=== PATIENT | male | born 1995 | race Caucasian/White ===

== ENCOUNTER 2018-08-12 14:34 | Inpatient (IN) | payer OTHER ==
[2018-08-12] MEDS ORDERED: Sodium Chloride 0.9% 1,000 ML IV SCH ×2 (15:00→16:30)
--- NOTE | 2018-08-12 15:01 | EDM.PDOC ---
ED HPI GENERAL MEDICAL PROBLEM - General Chief Complaint: Diabetic Complaint Stated Complaint: HIGH BLOOD SUGAR/CRAMPS Time Seen by Provider: 08/12/18 14:55 Source of Information: Reports: Patient History Limitations: Reports: No Limitations - History of Present Illness INITIAL COMMENTS - FREE TEXT/NARRATIVE: 23-year-old male presented to Dr. Sarmiento's clinic today because of feeling unwell for the last several weeks. He is appreciated increased polyuria and polydipsia much worse over the last 4 days. When he looks back he believes that he has lost between 10 and 13 pounds of weight in the last several weeks. Denies is polyuria and polydipsia. He went and body glucometer and identified that his blood sugar was in the 360 range. He has some diabetes on his father's side of the family with an aunt who has diabetes but both of them were type II diabetics. He denies cough sputum production. Denies fever or chills. Has some weakness. Appetite remains quite good. He denies any nausea or vomiting. Onset: Gradual (Over the last week or more.) Duration: Day(s):, Getting Worse Location: Reports: Generalized (Generalized weakness with a strong sense of polydipsia and polyuria.) Quality: Reports: Other Severity: Moderate Improves with: Reports: None Worsens with: Reports: None Context: Reports: Other (Robbie is occurrence of above symptoms). Denies: Activity, Exercise, Lifting, Sick Contact, Trauma Associated Symptoms: Reports: Malaise, Other. Denies: Confusion, Chest Pain, Cough, cough w sputum, Diaphoresis, Fever/Chills, Headaches, Loss of Appetite, Nausea/Vomiting, Rash, Seizure, Shortness of Breath, Syncope Treatments [employer]: Reports: Other (see below) (None.) - Related Data Allergies Allergy/AdvReac Type Severity Reaction Status Date / Time No Known Allergies Allergy Verified 08/12/18 14:45 Home Meds: Home Meds . [No Known Home Meds] 08/12/18 [History] Past Medical History Musculoskeletal History: Reports: Other (See Below) (Fractured left femur as a child age 3 treated by cast) Social & Family History - Living Situation & Occupation Living situation: Reports: Single Occupation: Employed ED ROS GENERAL - Review of Systems Review Of Systems: See Below Constitutional: Reports: Malaise, Weakness, Fatigue, Weight Loss (About 10-13 pounds over the last 2-3 weeks as a weighed about 145 pounds currently 133). Denies: Fever, Chills HEENT: Reports: Other (Dry tongue and mouth all the time) Respiratory: Reports: No Symptoms Cardiovascular: Reports: Palpitations Endocrine: Reports: Fatigue (Occasional palpitations), High Glucose (Scattered with glucometers today.) GI/Abdominal: Reports: No Symptoms : Reports: Frequency Musculoskeletal: Reports: No Symptoms Skin: Reports: Dryness (This of his hands particularly) Neurological: Reports: No Symptoms Psychiatric: Reports: No Symptoms Hematologic/Lymphatic: Reports: No Symptoms ED EXAM GENERAL NO PERIP PULSE - Physical Exam Exam: See Below Exam Limited By: No Limitations General Appearance: Alert, WD/WN, No Apparent Distress, Other (Vital signs show pulse of 77 respiratory rate of 20 blood pressure 131/81.) Eye Exam: Bilateral Eye: Normal Inspection Ears: Normal TMs Throat/Mouth: Normal Inspection, Normal Oropharynx, Other Head: No: Atraumatic (Posterior or paroxysmal mildly erythematous. No exudate), Normocephalic Neck: Normal Inspection, Supple, Non-Tender, Full Range of Motion. No: Lymphadenopathy (L), Lymphadenopathy (R) Respiratory/Chest: No Respiratory Distress, Lungs Clear, Normal Breath Sounds, No Accessory Muscle Use, Chest Non-Tender, Respiratory Distress (Mild tachypnea 20/m) Cardiovascular: Normal Peripheral Pulses, Regular Rate, Rhythm, No Edema, No Gallop, No Murmur, No Rub GI/Abdominal: Normal Bowel Sounds, Soft, Non-Tender (Male) Exam: No Hernia Back Exam: Normal Inspection, Full Range of Motion. No: CVA Tenderness (L), CVA Tenderness (R) Extremities: Normal Inspection, Normal Range of Motion, Non-Tender, No Pedal Edema Neurological: Alert, Oriented, CN II-XII Intact, Normal Cognition Psychiatric: Normal Affect, Normal Mood Skin Exam: Warm, Dry, Intact, Normal Color, No Rash EKG INTERPRETATION EKG Date: 08/12/18 Time: 15:11 Rhythm: NSR Rate (Beats/Min): 81 [place]: RAD-Right [place] Deviation P-Wave: Enlarged (Consider left atrial hypertrophy) QRS: Other (Borderline criteria for left ventricular hypertrophy pattern normal for age.) ST-T: Normal QT: Normal EKG Interpretation Comments: Borderline ECG Course - Vital Signs Last Recorded V/S: Last Vital Signs Temp 36.6 C 08/12/18 14:45 Pulse 77 08/12/18 14:45 Resp 20 08/12/18 14:45 BP 131/81 08/12/18 14:45 Pulse Ox 99 08/12/18 14:45 - Orders/Labs/Meds Orders: Active Orders 24 hr Category Date Time Status Blood Glucose Check, Bedside [] ONETIME Care 08/12/18 14:57 Active EKG Documentation Completion [RC] STAT Care 08/12/18 14:56 Active Insulin Regular, Human [HumuLIN R] 100 unit Med 08/12/18 15:15 Active Sodium Chloride 0.9% [Normal Saline] 99 ml IV TITRATE Sodium Chloride 0.9% [Normal Saline] 1,000 ml Med 08/12/18 15:00 Active IV ASDIRECTED Sodium Chloride 0.9% [Normal Saline] 1,000 ml Med 08/12/18 16:30 Active IV ASDIRECTED Medication Orders Sodium Chloride (Normal Saline) 1,000 mls @ 999 mls/hr IV ASDIRECTED CLYDE Last Admin: 08/12/18 15:19 Dose: 999 mls/hr Insulin Human Regular 100 unit (/ Sodium Chloride) 100 mls @ 1 mls/hr IV TITRATE CLYDE Last Admin: 08/12/18 15:54 Dose: 2 unit/hr, 2 mls/hr Sodium Chloride (Normal Saline) 1,000 mls @ 500 mls/hr IV ASDIRECTED CLYDE Potassium Chloride/Dextrose/Sod Cl (D5 Ns With 20 Meq Kcl) 1,000 mls @ 250 mls/ hr IV ASDIRECTED [facility] Labs: Laboratory Tests 08/12/18 08/12/18 08/12/18 Range/Units 14:44 15:10 15:10 WBC 6.60 (4.23-9.07) K/mm3 RBC 5.67 (4.63-6.08) M/mm3 Hgb 16.2 (13.7-17.5) gm/L Hct 45.3 (40.1-51.0) % MCV 79.9 (79.0-92.2) fl MCH 28.6 (25.7-32.2) pg MCHC 35.8 H (32.2-35.5) g/dl RDW Std Deviation 34.6 L (35.1-43.9) fL Plt Count 275 (163-337) K/mm3 MPV 11.0 (9.4-12.3) fl Neutrophils % (Manual) 62 H (40-60) % Band Neutrophils % 0 (0-10) % Lymphocytes % (Manual) 35 (20-40) % Atypical Lymphs % 0 % Monocytes % (Manual) 2 (2-10) % Eosinophils % (Manual) 1 (0.8-7.0) % Basophils % (Manual) 0 L (0.2-1.2) Platelet Estimate Adequate RBC Morph Comment Normal Sodium 137 (136-145) mEq/L Potassium 3.7 (3.5-5.1) mEq/L Chloride 98 (98-107) mEq/L Carbon Dioxide 28 (21-32) mEq/L Anion Gap 14.7 (5-15) BUN 15 (7-18) mg/dL Creatinine 1.0 (0.7-1.3) mg/dL Est Cr Clr Drug Dosing 98.53 mL/min Estimated GFR (MDRD) > 60 (>60) mL/min BUN/Creatinine Ratio 15.0 (14-18) Glucose 333 H (74-106) mg/dL POC Glucose 337 H (70-105) mg/dL Hemoglobin A1c (4.50-6.20) % Serum Osmolality 301 H (280-300) mosm/kg Lactic Acid (0.4-2.0) mmol/L Calcium 9.1 (8.5-10.1) mg/dL Magnesium 1.9 (1.8-2.4) mg/dl Total Bilirubin 2.1 H (0.2-1.0) mg/dL AST 26 (15-37) U/L ALT 80 H (16-63) U/L Alkaline Phosphatase 114 (46-116) U/L C-Reactive Protein < 0.2 (<1.0) mg/dL Total Protein 7.5 (6.4-8.2) g/dl Albumin 4.5 (3.4-5.0) g/dl Globulin 3.0 gm/dL Albumin/Globulin Ratio 1.5 (1-2) Ketones (0.0-0.3) mM 03/12/19 03/12/19 03/12/19 Range/Units 15:10 15:10 15:35 WBC (4.23-9.07) K/mm3 RBC (4.63-6.08) M/mm3 Hgb (13.7-17.5) gm/L Hct (40.1-51.0) % MCV (79.0-92.2) fl MCH (25.7-32.2) pg MCHC (32.2-35.5) g/dl RDW Std Deviation (35.1-43.9) fL Plt Count (163-337) K/mm3 MPV (9.4-12.3) fl Neutrophils % (Manual) (40-60) % Band Neutrophils % (0-10) % Lymphocytes % (Manual) (20-40) % Atypical Lymphs % % Monocytes % (Manual) (2-10) % Eosinophils % (Manual) (0.8-7.0) % Basophils % (Manual) (0.2-1.2) Platelet Estimate RBC Morph Comment Sodium (136-145) mEq/L Potassium (3.5-5.1) mEq/L Chloride (98-107) mEq/L Carbon Dioxide (21-32) mEq/L Anion Gap (5-15) BUN (7-18) mg/dL Creatinine (0.7-1.3) mg/dL Est Cr Clr Drug Dosing mL/min Estimated GFR (MDRD) (>60) mL/min BUN/Creatinine Ratio (14-18) Glucose (74-106) mg/dL POC Glucose (70-105) mg/dL Hemoglobin A1c 9.70 H (4.50-6.20) % Serum Osmolality (280-300) mosm/kg Lactic Acid 1.2 (0.4-2.0) mmol/L Calcium (8.5-10.1) mg/dL Magnesium (1.8-2.4) mg/dl Total Bilirubin (0.2-1.0) mg/dL AST (15-37) U/L ALT (16-63) U/L Alkaline Phosphatase (46-116) U/L C-Reactive Protein (<1.0) mg/dL Total Protein (6.4-8.2) g/dl Albumin (3.4-5.0) g/dl Globulin gm/dL Albumin/Globulin Ratio (1-2) Ketones 1.82 (0.0-0.3) mM Meds: Medications Generic Name Dose Route Start Last Admin Trade Name Freq PRN Reason Stop Dose Admin Sodium Chloride 1,000 mls @ 999 mls/hr 08/12/18 15:00 08/12/18 15:19 Normal Saline IV 999 mls/hr ASDIRECTED CLYDE Administration Insulin Human Regular 100 unit 100 mls @ 1 mls/hr 08/12/18 15:15 08/12/18 15: 54 / Sodium Chloride IV 2 unit/hr TITRATE CLYDE 2 mls/hr Administration 1 UNIT/HR Sodium Chloride 1,000 mls @ 500 mls/hr 08/12/18 16:30 Normal Saline IV ASDIRECTED CLYDE Potassium Chloride/Dextrose/Sod Cl 1,000 mls @ 250 mls/hr 08/12/18 17:30 D5 Ns With 20 Meq Kcl IV ASDIRECTED CLYDE Discontinued Medications Generic Name Dose Route Start Last Admin Trade Name Freq PRN Reason Stop Dose Admin Sodium Chloride 1,000 mls @ 999 mls/hr 08/12/18 16:19 08/12/18 16:23 Normal Saline IV 08/12/18 17:19 999 mls/hr ONETIME ONE Administration - Radiology Interpretation Free Text/Narrative:: 23-year-old male presents to the ED with polyuria polydipsia and a 12 pound weight loss over the last couple of weeks. As the last 4 days. Sugar is 330 fasting. Therefore appears that he is a new onset type I diabetic. No ketones on his breath. Plan IV normal saline at open. Labs to be done to include glycosylated protein, serum ketones, lactic acid levels. He will be started on insulin drip at 2 units an hour. ECG and chest x-ray to be done as well. - Re-Assessments/Exams Free Text/Narrative Re-Assessment/Exam: 08/12/18 15:21 chest x-ray is reveals hyperinflated lung fragoso normal cardiac silhouette lung fragoso are clear with no signs of infection. 08/12/18 16:26 Blood blood cell count is 6.60 with 62% neutrophils and no band cells reported. Hemoglobin is 16.2 with hematocrit of 45.3. MCV is slightly low at 79.9. 275,000. Sodium 137 potassium of 3.7. Chloride 98 with a bicarbonate of 28. And a gap is 14.7. BUN is 15 with a running of 1.0. GFR remains greater than 60. Glucose is 333. Bedside was 337. Serum osmolality is 301. Lactic acid is 1.2. Calcium is 9.1. Magnesium is 1.9. Total bilirubin is mildly elevated at 2.1 AST is 26 with an ALT of 80 and and alk phosphatase of 114. 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 C-reactive protein is less than 0.2. Total protein is 7.5. Serum ketones are mildly elevated at 1.82. 08/12/18 17:26 glycosylated protein is 9.7. Sugar is down to 195. Insulin drip reduced to 1 unit an hour. IV change to IV D5 S with 20 mg of KCl to run at 250 mils an hour patient is to be admitted to the intensive care unit under the care of Dr. Scott --ospitalist Departure - Departure Time of Disposition: 17:28 Disposition: Admitted As Inpatient 64 Condition: Fair Clinical Impression: New onset type 1 diabetes mellitus, uncontrolled - Discharge Information *PRESCRIPTION DRUG MONITORING PROGRAM REVIEWED*: Not Applicable *COPY OF PRESCRIPTION DRUG MONITORING REPORT IN PATIENT BRIANA: Not Applicable - My Orders Last 24 Hours: My Active Orders 08/12/18 14:56 EKG Documentation Completion [RC] STAT 08/12/18 14:57 Blood Glucose Check, Bedside [RC] ONETIME 08/12/18 15:00 Sodium Chloride 0.9% [Normal Saline] 1,000 ml IV ASDIRECTED 08/12/18 15:15 Insulin Regular, Human [HumuLIN R] 100 unit Sodium Chloride 0.9% [Normal Saline] 99 ml IV TITRATE 08/12/18 16:30 Sodium Chloride 0.9% [Normal Saline] 1,000 ml IV ASDIRECTED - Assessment/Plan Last 24 Hours: My Active Orders 08/12/18 14:56 EKG Documentation Completion [RC] STAT 08/12/18 14:57 Blood Glucose Check, Bedside [RC] ONETIME 08/12/18 15:00 Sodium Chloride 0.9% [Normal Saline] 1,000 ml IV ASDIRECTED 08/12/18 15:15 Insulin Regular, Human [HumuLIN R] 100 unit Sodium Chloride 0.9% [Normal Saline] 99 ml IV TITRATE 08/12/18 16:30 Sodium Chloride 0.9% [Normal Saline] 1,000 ml IV ASDIRECTED
--- NOTE | 2018-08-12 15:31 | CR ---
Chest: Portable view of the chest was obtained. Comparison: No prior chest x-ray. Heart size and mediastinum are within normal limits. Lungs are clear with no acute parenchymal change. Bony structures are grossly intact. Impression: 1. Nothing acute is seen on portable chest x-ray. Diagnostic code #1
[2018-08-12] MEDS ORDERED: Sodium Chloride 0.9% 1,000 ML IV ONE (16:19)
[2018-08-12 16:24] LABS: HEMOGLOBIN A1C 9.7 % (4.50-6.20)
[2018-08-12] MEDS ORDERED: Dextrose 5%-0.9% NaCl with KCl 1,000 ML IV SCH (17:30)
[2018-08-12] MEDS ORDERED: hydrALAZINE 20 MG/ML SDV IVPUSH PRN (17:48)
[2018-08-12] MEDS ORDERED: Nicotine 21 MG/24 Hr Patch TRDERM PRN (17:48)
[2018-08-12] MEDS ORDERED: Metoprolol Tartrate 5 MG/5 ML SDV IVPUSH PRN (17:48)
[2018-08-12] MEDS ORDERED: LORazepam 2 MG/ML SDV IVPUSH PRN (17:48)
[2018-08-12] MEDS ORDERED: Polyethylene Glycol 3350 Powder 17 GM Packet PO PRN (17:49)
[2018-08-12] MEDS ORDERED: Temazepam 7.5 MG Cap PO PRN (17:49)
[2018-08-12] MEDS ORDERED: Acetaminophen 325 MG Tab PO PRN (17:49)
[2018-08-12] MEDS ORDERED: Albuterol/Ipratropium 3.0-0.5 MG/3 ML Neb Soln NEB PRN (17:49)
[2018-08-12] MEDS ORDERED: Promethazine 6.25 MG in Sodium Chloride 0.9% 50 ML IV PRN (17:49)
[2018-08-12] MEDS ORDERED: Docusate Sodium 100 MG Cap PO PRN (17:49)
[2018-08-12] MEDS ORDERED: Acetaminophen/HYDROcodone 325-5 MG Tab PO PRN (17:49)
[2018-08-12] MEDS ORDERED: Bisacodyl 5 MG Tab PO PRN (17:49)
[2018-08-12] MEDS ORDERED: Ondansetron 4 MG/2 ML SDV IV PRN (17:49)
[2018-08-12] MEDS ORDERED: Magnesium Oxide 400 MG Tab PO ONE (18:15)
[2018-08-12] MEDS: Potassium Chloride 20 MEQ Tab.ER PO SCH ×2 (19:03→21:14)
--- NOTE | 2018-08-12 20:44 | PCM.HP ---
H&P History of Present Illness - General Date of Service: 08/12/18 Admit Problem/Dx: Admission Diagnosis/Problem Admission Diagnosis/Problem Diabetes mellitus Source of Information: Patient, Family, Provider, RN Notes Reviewed History Limitations: Reports: No Limitations - History of Present Illness Initial Comments - Free Text/Narative: This is a 23 yo healthy young white male who comes in feeling unwell in the past several weeks after being seen at the clinic for complaints of primarily polydipsia and polyuria over the past 4 days. His chief complaints were associated with malaise along with generalized weakness and was diagnosed with new onset of diabetes. He was referred to ED from the clinic for further evaluation and was told he has Type 1 Diabetes. His initial work up in ED shows a WBC significant for MCHC of 35.8, RDW of 34.6 , and Neutrophils of 62%. His chemistry is significant for BS of 333, A1C of 9.7 , Serum Osm of 301, Total Bilirubin of 2.1, and ALT of 80. His UA is negative for UTI but 2+ pos for ketones and glucose. His serum ketones level is 1.82. Patient is being admitted treatment of for new onset of diabetes likely FREDRICK. - Related Data Allergies/Adverse Reactions: Allergies Allergy/AdvReac Type Severity Reaction Status Date / Time No Known Allergies Allergy Verified 08/12/18 19:14 Home Medications: Home Meds Cholecalciferol (Vitamin D3) [Vitamin D3] 5,000 unit PO DAILY #30 tablet [Rx] Insulin Detemir [Levemir Flextouch] 15 unit SUBCUT BID #1 ml 08/13/18 [Rx] Insulin Lispro [HumaLOG] See Protocol SQ ACBED PRN #1 unit 08/13/18 [Rx] Lisinopril 10 mg PO DAILY #30 tablet 08/13/18 [Rx] Past Medical History Musculoskeletal History: Reports: Other (See Below) Other Musculoskeletal History: fracture of femur Neurological History: Reports: None Hematologic History: Reports: None - Past Surgical History HEENT Surgical History: Reports: Oral Surgery, Tonsillectomy GI Surgical History: Reports: Appendectomy Social & Family History - Family History Endocrine/Metabolic: Reports: None, Other (See Below) Other Endocrine/Metabolic Family History: Diabetes unknown which type - Tobacco Use Smoking Status *Q: Never Smoker Used Tobacco, but Quit: Yes Month/Year Tobacco Last Used: 13 - Caffeine Use Caffeine Use: Reports: Coffee - Recreational Drug Use Recreational Drug Use: No - Living Situation & Occupation Living situation: Reports: Single Occupation: Employed H&P Review of Systems - Review of Systems: Review Of Systems: See Below General: Reports: Weakness, Weight Loss, Other (malaise ). Denies: Fever, Chills, Malaise, Fatigue HEENT: Reports: Other (Polydipsia and Polyuria) Pulmonary: Denies: Shortness of Breath Cardiovascular: Denies: Chest Pain, Dyspnea on Exertion, Lightheadedness Gastrointestinal: Reports: Flatus. Denies: Abdominal Pain, Bloody Stool, Constipation, Diarrhea, Decreased Appetite, Difficulty Swallowing, Hematemesis, Nausea, Vomiting Genitourinary: Reports: Frequency Musculoskeletal: Denies: Neck Pain, Arm Pain, Back Pain, Joint Swelling, Muscle Stiffness Skin: Denies: Cyanosis, Jaundice, Mottled, Pallor, Diaphoresis, Bruising, Pruritis, Rash, Erythema, Wound, Lesions Psychiatric: Denies: Depression, Anxiety, Agitation, Hallucinations, Suicidal Ideation Neurological: Denies: Confusion, Dizziness, Headache, Numbness, Paresthesia, Seizure, Syncope, Tingling, Tremors, Trouble Speaking, Difficulty Walking, Weakness, Change in Speech, Gait Disturbance Hematologic/Lymphatic: Reports: No Symptoms Immunologic: Reports: No Symptoms Exam - Exam Exam: See Below - Vital Signs Vital Signs: Last Vital Signs Temp 37.1 C 08/12/18 18:15 Pulse 83 08/12/18 18:15 Resp 14 08/12/18 18:15 BP 117/73 08/12/18 18:15 Pulse Ox 100 08/12/18 18:15 Weight: 63.503 kg - Exam General: Alert, Oriented, Cooperative, Mild Distress, Other (healthy looking young man) HEENT: Conjunctiva Clear, EACs Clear, EOMI, Hearing Intact, Mucosa Moist & [place] , Nares Patent, Normal Nasal Septum, Posterior Pharynx Clear, Pupils Equal, Pupils Reactive, TMs Clear Neck: Supple, Trachea Midline, +2 Carotid Pulse wo Bruit, Full Range of Motion. No: Lymphadenopathy, JVD, Thyromegaly Lungs: Clear to Auscultation, Normal Respiratory Effort Cardiovascular: Regular Rate, Regular Rhythm GI/Abdominal Exam: Normal Bowel Sounds, Soft, Non-Tender, No Organomegaly, No Distention, No Abnormal Bruit, No Mass (Male) Exam: Deferred Rectal (Males) Exam: Deferred Back Exam: Normal Inspection, Full Range of Motion Extremities: Normal Inspection, Normal Range of Motion, Non-Tender, No Pedal Edema, Normal Capillary Refill Peripheral Pulses: 3+: Posterior Tibial (L), Posterior Tibial (R), Dorsalis Pedis (L), Dorsalis Pedis (R) Skin: Warm, Dry, Intact Neuro Extensive - Mental Status: Oriented x3, Normal Cognition, Memory Intact Neuro Extensive - Motor, Sensory, Reflexes: CN II-XII Intact, Normal Gait Psychiatric: Alert, Normal Affect, Normal Mood - Patient Data Lab Results Last 24 hrs: Laboratory Results - last 24 hr 08/12/18 08/12/18 08/12/18 Range/Units 14:44 15:10 15:10 WBC 6.60 (4.23-9.07) K/mm3 RBC 5.67 (4.63-6.08) M/mm3 Hgb 16.2 (13.7-17.5) gm/L Hct 45.3 (40.1-51.0) % MCV 79.9 (79.0-92.2) fl MCH 28.6 (25.7-32.2) pg MCHC 35.8 H (32.2-35.5) g/dl RDW Std Deviation 34.6 L (35.1-43.9) fL Plt Count 275 (163-337) K/mm3 MPV 11.0 (9.4-12.3) fl Neutrophils % (Manual) 62 H (40-60) % Band Neutrophils % 0 (0-10) % Lymphocytes % (Manual) 35 (20-40) % Atypical Lymphs % 0 % Monocytes % (Manual) 2 (2-10) % Eosinophils % (Manual) 1 (0.8-7.0) % Basophils % (Manual) 0 L (0.2-1.2) Platelet Estimate Adequate RBC Morph Comment Normal Sodium 137 (136-145) mEq/L Potassium 3.7 (3.5-5.1) mEq/L Chloride 98 (98-107) mEq/L Carbon Dioxide 28 (21-32) mEq/L Anion Gap 14.7 (5-15) BUN 15 (7-18) mg/dL Creatinine 1.0 (0.7-1.3) mg/dL Est Cr Clr Drug Dosing 98.53 mL/min Estimated GFR (MDRD) > 60 (>60) mL/min BUN/Creatinine Ratio 15.0 (14-18) Glucose 333 H (74-106) mg/dL POC Glucose 337 H (70-105) mg/dL Hemoglobin A1c (4.50-6.20) % Serum Osmolality 301 H (280-300) mosm/kg Lactic Acid (0.4-2.0) mmol/L Calcium 9.1 (8.5-10.1) mg/dL Magnesium 1.9 (1.8-2.4) mg/dl Total Bilirubin 2.1 H (0.2-1.0) mg/dL AST 26 (15-37) U/L ALT 80 H (16-63) U/L Alkaline Phosphatase 114 (46-116) U/L C-Reactive Protein < 0.2 (<1.0) mg/dL Total Protein 7.5 (6.4-8.2) g/dl Albumin 4.5 (3.4-5.0) g/dl Globulin 3.0 gm/dL Albumin/Globulin Ratio 1.5 (1-2) Free T4 (0.76-1.46) ng/dL TSH 3rd Generation (0.358-3.74) uIU/mL Ketones (0.0-0.3) mM 08/12/18 08/12/18 08/12/18 Range/Units 15:10 15:10 15:10 WBC (4.23-9.07) K/mm3 RBC (4.63-6.08) M/mm3 Hgb (13.7-17.5) gm/L Hct (40.1-51.0) % MCV (79.0-92.2) fl MCH (25.7-32.2) pg MCHC (32.2-35.5) g/dl RDW Std Deviation (35.1-43.9) fL Plt Count (163-337) K/mm3 MPV (9.4-12.3) fl Neutrophils % (Manual) (40-60) % Band Neutrophils % (0-10) % Lymphocytes % (Manual) (20-40) % Atypical Lymphs % % Monocytes % (Manual) (2-10) % Eosinophils % (Manual) (0.8-7.0) % Basophils % (Manual) (0.2-1.2) Platelet Estimate RBC Morph Comment Sodium (136-145) mEq/L Potassium (3.5-5.1) mEq/L Chloride (98-107) mEq/L Carbon Dioxide (21-32) mEq/L Anion Gap (5-15) BUN (7-18) mg/dL Creatinine (0.7-1.3) mg/dL Est Cr Clr Drug Dosing mL/min Estimated GFR (MDRD) (>60) mL/min BUN/Creatinine Ratio (14-18) Glucose (74-106) mg/dL POC Glucose (70-105) mg/dL Hemoglobin A1c 9.70 H (4.50-6.20) % Serum Osmolality (280-300) mosm/kg Lactic Acid (0.4-2.0) mmol/L Calcium (8.5-10.1) mg/dL Magnesium (1.8-2.4) mg/dl Total Bilirubin (0.2-1.0) mg/dL AST (15-37) U/L ALT (16-63) U/L Alkaline Phosphatase (46-116) U/L C-Reactive Protein (<1.0) mg/dL Total Protein (6.4-8.2) g/dl Albumin (3.4-5.0) g/dl Globulin gm/dL Albumin/Globulin Ratio (1-2) Free T4 (0.76-1.46) ng/dL TSH 3rd Generation 1.595 (0.358-3.74) uIU/mL Ketones 1.82 (0.0-0.3) mM 08/12/18 08/12/18 08/12/18 Range/Units 15:10 15:35 17:10 WBC (4.23-9.07) K/mm3 RBC (4.63-6.08) M/mm3 Hgb (13.7-17.5) gm/L Hct (40.1-51.0) % MCV (79.0-92.2) fl MCH (25.7-32.2) pg MCHC (32.2-35.5) g/dl RDW Std Deviation (35.1-43.9) fL Plt Count (163-337) K/mm3 MPV (9.4-12.3) fl Neutrophils % (Manual) (40-60) % Band Neutrophils % (0-10) % Lymphocytes % (Manual) (20-40) % Atypical Lymphs % % Monocytes % (Manual) (2-10) % Eosinophils % (Manual) (0.8-7.0) % Basophils % (Manual) (0.2-1.2) Platelet Estimate RBC Morph Comment Sodium (136-145) mEq/L Potassium (3.5-5.1) mEq/L Chloride (98-107) mEq/L Carbon Dioxide (21-32) mEq/L Anion Gap (5-15) BUN (7-18) mg/dL Creatinine (0.7-1.3) mg/dL Est Cr Clr Drug Dosing mL/min Estimated GFR (MDRD) (>60) mL/min BUN/Creatinine Ratio (14-18) Glucose (74-106) mg/dL POC Glucose 195 H (70-105) mg/dL Hemoglobin A1c (4.50-6.20) % Serum Osmolality (280-300) mosm/kg Lactic Acid 1.2 (0.4-2.0) mmol/L Calcium (8.5-10.1) mg/dL Magnesium (1.8-2.4) mg/dl Total Bilirubin (0.2-1.0) mg/dL AST (15-37) U/L ALT (16-63) U/L Alkaline Phosphatase (46-116) U/L C-Reactive Protein (<1.0) mg/dL Total Protein (6.4-8.2) g/dl Albumin (3.4-5.0) g/dl Globulin gm/dL Albumin/Globulin Ratio (1-2) Free T4 0.92 (0.76-1.46) ng/dL TSH 3rd Generation (0.358-3.74) uIU/mL Ketones (0.0-0.3) mM 08/12/18 Range/Units 19:06 WBC (4.23-9.07) K/mm3 RBC (4.63-6.08) M/mm3 Hgb (13.7-17.5) gm/L Hct (40.1-51.0) % MCV (79.0-92.2) fl MCH (25.7-32.2) pg MCHC (32.2-35.5) g/dl RDW Std Deviation (35.1-43.9) fL Plt Count (163-337) K/mm3 MPV (9.4-12.3) fl Neutrophils % (Manual) (40-60) % Band Neutrophils % (0-10) % Lymphocytes % (Manual) (20-40) % Atypical Lymphs % % Monocytes % (Manual) (2-10) % Eosinophils % (Manual) (0.8-7.0) % Basophils % (Manual) (0.2-1.2) Platelet Estimate RBC Morph Comment Sodium (136-145) mEq/L Potassium (3.5-5.1) mEq/L Chloride (98-107) mEq/L Carbon Dioxide (21-32) mEq/L Anion Gap (5-15) BUN (7-18) mg/dL Creatinine (0.7-1.3) mg/dL Est Cr Clr Drug Dosing mL/min Estimated GFR (MDRD) (>60) mL/min BUN/Creatinine Ratio (14-18) Glucose (74-106) mg/dL POC Glucose 194 H (70-105) mg/dL Hemoglobin A1c (4.50-6.20) % Serum Osmolality (280-300) mosm/kg Lactic Acid (0.4-2.0) mmol/L Calcium (8.5-10.1) mg/dL Magnesium (1.8-2.4) mg/dl Total Bilirubin (0.2-1.0) mg/dL AST (15-37) U/L ALT (16-63) U/L Alkaline Phosphatase (46-116) U/L C-Reactive Protein (<1.0) mg/dL Total Protein (6.4-8.2) g/dl Albumin (3.4-5.0) g/dl Globulin gm/dL Albumin/Globulin Ratio (1-2) Free T4 (0.76-1.46) ng/dL TSH 3rd Generation (0.358-3.74) uIU/mL Ketones (0.0-0.3) mM Result Diagrams: 08/13/18 06:05 08/13/18 06:05 Problem List Initiated/Reviewed/Updated: Yes Orders Last 24hrs: Active Orders 24 hr Category Date Time Status Admission Status [Patient Status] [ADT] Routine ADT 08/12/18 16:59 Active Antiembolic Devices [RC] DAILY Care 08/12/18 17:51 Active Blood Glucose Check, Bedside [RC] QIDACANDBED Care 08/12/18 17:52 Active Height and Weight [RC] DAILY Care 08/12/18 17:49 Active Intake and Output [RC] QSHIFT Care 08/12/18 17:49 Active Oxygen Therapy [RC] PRN Care 08/12/18 17:49 Active RT Aerosol Therapy [RC] ASDIRECTED Care 08/12/18 17:51 Active Up ad Kimberli [RC] ASDIRECTED Care 08/12/18 17:49 Active VTE/DVT Education [RC] PER UNIT ROUTINE Care 08/12/18 17:49 Active Vital Signs [RC] Q4H Care 08/12/18 17:49 Active Consult to Case Management/Card Puncher [CONS] Cons 08/12/18 17:49 Active Routine Consult to Diabetic Nurse Specialist [CONS] Routine Cons 08/12/18 17:49 Active Consult to Sales Promotion Manager [CONS] Routine Cons 08/12/18 17:49 Active Consistent Carbohydrate Diet [DIET] Diet 08/12/18 Dinner Active BASIC METABOLIC PANEL,BMP [CHEM] AM Lab 08/13/18 05:11 Ordered C-PEPTIDE, SERUM [REF] Stat Lab 08/12/18 18:18 Received CBC WITH AUTO DIFF [HEME] AM Lab 08/13/18 05:11 Ordered INSULIN ANTIBODIES [REF] Stat Lab 08/12/18 18:18 Received INSULIN [REF] Stat Lab 08/12/18 18:18 Received LIPID PANEL [CHEM] AM Lab 08/13/18 05:11 Ordered MAGNESIUM [CHEM] AM Lab 08/13/18 05:11 Ordered MICROALBUMIN/CREAT RATIO,URINE [URCHEM] Routine Lab 08/12/18 17:52 Ordered MISC TEST Stat Lab 08/12/18 18:18 Received VITAMIN D,25-HYDROXY [CHEM] AM Lab 08/13/18 05:11 Ordered Acetaminophen [Tylenol] Med 08/12/18 17:49 Active 650 mg PO Q4H PRN Acetaminophen/HYDROcodone [[place] 325-5 MG] Med 08/12/18 17:49 Active 1 tab PO Q4H PRN Albuterol/Ipratropium [DuoNeb 3.0-0.5 MG/3 ML] Med 08/12/18 17:49 Active 3 ml NEB Q4H PRN Alogliptin Benzoate [Alogliptin] Med 08/13/18 09:00 Active 25 mg PO DAILY Bisacodyl [Dulcolax] Med 08/12/18 17:49 Active 5 mg PO DAILY PRN Dextrose 5%-0.9% NaCl with KCl [D5 NS with 20 mEq KCl] Med 08/12/18 17:30 Active 1,000 ml IV ASDIRECTED Docusate Sodium [Colace] Med 08/12/18 17:49 Active 100 mg PO BID PRN Docusate Sodium/Sennosides [Senna Plus] Med 08/12/18 17:49 Active 1 tab PO BID PRN Insulin Regular, Human [HumuLIN R] 100 unit Med 08/12/18 15:15 Active Sodium Chloride 0.9% [Normal Saline] 99 ml IV TITRATE LORazepam [Ativan] Med 08/12/18 17:48 Active 2 mg IVPUSH Q4H PRN Metoprolol Tartrate [Lopressor] Med 08/12/18 17:48 Active 5 mg IVPUSH Q4H PRN Nicotine [Habitrol] Med 08/12/18 17:48 Active 21 mg TRDERM DAILY PRN Ondansetron [Zofran] Med 08/12/18 17:49 Active 4 mg IV Q4H PRN Pharmacy to Dose - Magnesium R [Pharmacy to Dose - Med 08/12/18 18:00 Pending Magnesium Replacement] 1 dose .XX ASDIRECTED Pharmacy to Dose - Potassium R [Pharmacy to Dose - Med 08/12/18 18:00 Pending Potassium Replacement] 1 dose .XX ASDIRECTED Polyethylene Glycol 3350 [MiraLAX] Med 08/12/18 17:49 Active 17 gm PO DAILY PRN Potassium Chloride [Klor-Con M20] Med 08/12/18 18:15 Active 40 meq PO Q4H Promethazine [Phenergan] 6.25 mg Med 08/12/18 17:49 Active Sodium Chloride 0.9% [Normal Saline] 50 ml IV Q6H Sodium Chloride 0.9% [Normal Saline] 1,000 ml Med 08/12/18 15:00 Active IV ASDIRECTED Temazepam [Restoril] Med 08/12/18 17:49 Active 7.5 mg PO BEDTIME PRN glipiZIDE [Glucotrol XL] Med 08/12/18 21:00 Active 2.5 mg PO BID hydrALAZINE [Apresoline] Med 08/12/18 17:48 Active 20 mg IVPUSH Q4H PRN metFORMIN [Glucophage] Med 08/13/18 07:00 Active 500 mg PO BIDMEALS Sequential Compression Device [OM.PC] Per Unit Routine Oth 08/12/18 17:50 Ordered Resuscitation Status Routine Resus Stat 08/12/18 17:49 Ordered Medication Orders Acetaminophen (Tylenol) 650 mg PO Q4H PRN PRN Reason: Pain (Mild 1-3)/fever Hydrocodone Bitart/Acetaminophen ([place] 325-5 Mg) 1 tab PO Q4H PRN PRN Reason: Pain (moderate 4-6) Albuterol/Ipratropium (Duoneb 3.0-0.5 Mg/3 Ml) 3 ml NEB Q4H PRN PRN Reason: Shortness Of Breath/wheezing Alogliptin Benzoate (Alogliptin) 25 mg PO DAILY CLYDE Bisacodyl (Dulcolax) 5 mg PO DAILY PRN PRN Reason: Constipation Docusate Sodium (Colace) 100 mg PO BID PRN PRN Reason: Constipation Glipizide (Glucotrol Xl) 2.5 mg PO BID CYLDE Hydralazine HCl (Apresoline) 20 mg IVPUSH Q4H PRN PRN Reason: Hypertension Sodium Chloride (Normal Saline) 1,000 mls @ 999 mls/hr IV ASDIRECTED [facility] Last Admin: 08/12/18 15:19 Dose: 999 mls/hr Insulin Human Regular 100 unit (/ Sodium Chloride) 100 mls @ 1 mls/hr IV TITRATE [facility] Last Infusion: 08/12/18 19:09 Dose: 0 unit/hr, 0 mls/hr Infusion: 08/12/18 18:54 Dose: 1 unit/hr, 1 mls/hr Admin: 08/12/18 15:54 Dose: 2 unit/hr, 2 mls/hr Potassium Chloride/Dextrose/Sod Cl (D5 Ns With 20 Meq Kcl) 1,000 mls @ 250 mls/ hr IV ASDIRECTED [facility] Last Admin: 08/12/18 17:33 Dose: 250 mls/hr Promethazine HCl 6.25 mg/ (Sodium Chloride) 50.25 mls @ 100 mls/hr IV Q6H PRN PRN Reason: Nausea/Vomiting Lorazepam (Ativan) 2 mg IVPUSH Q4H PRN PRN Reason: Seizures Magnesium Sulfate (Pharmacy To Dose - Magnesium Replacement) 1 dose .XX ASDIRECTED [facility] Metformin HCl (Glucophage) 500 mg PO BIDMEALS [facility] Metoprolol Tartrate (Lopressor) 5 mg IVPUSH Q4H PRN PRN Reason: Tachycardia Nicotine (Habitrol) 21 mg TRDERM DAILY PRN PRN Reason: Nicotine Dependence Ondansetron HCl (Zofran) 4 mg IV Q4H PRN PRN Reason: Nausea/Vomiting Polyethylene Glycol (Miralax) 17 gm PO DAILY PRN PRN Reason: Constipation Potassium Chloride (Pharmacy To Dose - Potassium Replacement) 1 dose .XX ASDIRECTED [facility] Potassium Chloride (Klor-Con M20) 40 meq PO Q4H [facility] Stop: 08/12/18 22:16 Last Admin: 08/12/18 19:03 Dose: 40 meq Senna/Docusate Sodium (Senna Plus) 1 tab PO BID PRN PRN Reason: Constipation Temazepam (Restoril) 7.5 mg PO BEDTIME PRN PRN Reason: Sleep Assessment/Plan Comment:: Assessment/Plan: Acute: FREDRICK - Probable new onset of DM 1.5 - He is thin built and in his mid 20s - DM1 usually seen in juvenile years - No DM1 in the family; has aunt and grandfather with type 2 - One sibling who is healthy - BS in the 300s; A1C is 9.70 - Serum Osm is 301; LA is 1.2 (wnl) - UA negative for UTI but 2+ Glucose and Ketones - Serum ketone is 1.82 - Needs to confirm if he is FREDRICK via C-peptide, Anti insulin antibodies, Anti NESTOR (most common in DM 1.5), Anti ICA, and Anti IA-2S (all send out and could take about to a month) - No Hx/o auto-immune disease - The main treatment is insulin however it could take a lot longer for above tests to come back; it would be prudent to treat him with DDP4 and GLP1 inhibitor - DDP4 and GLP1 Inhibitor will prevent further injury to beta islet cells compared to the traditional Metformin and Sulfonylureas as initial treatment for "6 months free insulin"--> this was discussed and recommended to Dr. Sarmiento who will follow him after discharge. - Patient received intravenous fluids and insulin drip in ED; we will d/c insulin drip - Start Alogliptin at 20 mg po daily, Glucotrol 2.5. mg po BID, and ISS medium dose AC/HS - Thyroid Panel, Vit D level, Lipid Panel and Urine Microalbumin Plan: Admitted to ICU due to Insulin Drip Routine AM Labs GI/DVT PPx: H2B and SCDs Diabetic and Dietary Consult SW/CM for d/c planning Accu-check AC/HS Transfer to [facility] in AM if stable Possible discharge in AM Endocrinology referral outpatient Met up with his family at beside. Went over his tests results, probable diagnosis, treatment and discharge care plan.
[2018-08-12] MEDS: glipiZIDE 2.5 MG Tab.ER PO SCH (22:08)
[2018-08-12] MEDS: Insulin Lispro 100 Units/ML 3 ML Vial SUBCUT SCH (22:09)
[2018-08-13] MEDS ORDERED: metFORMIN 500 MG Tab PO SCH (07:00)
[2018-08-13 07:47] LABS: VITAMIN D,25-HYDROXY 17.2 ng/ml (30.0-100.0)
[2018-08-13] MEDS: Insulin Lispro 100 Units/ML 3 ML Vial SUBCUT SCH ×2 (08:49→12:11)
[2018-08-13] MEDS: glipiZIDE 2.5 MG Tab.ER PO SCH (08:50)
[2018-08-13] MEDS ORDERED: Famotidine 20 MG Tab PO SCH (09:00)
[2018-08-13] MEDS ORDERED: Cholecalciferol (Vitamin D3) 5,000 UNIT Tab PO SCH (09:00)
[2018-08-13] MEDS ORDERED: Magnesium Oxide 400 MG Tab PO ONE (11:00)
--- NOTE | 2018-08-13 13:44 | PCM.DCSUM1 ---
Discharge Summary - Hospital Course Free Text/Narrative:: Patient was primarily admitted for medical management of hyperglycemia and was subsequently diagnosed with FREDRICK pending confirmatory test. He was treated with insulin and some oral agents and he immediately improved on this regimen. His hospital course was uncomplicated. Diabetic education and Dietary consultation were provided. He was discharged with SA/LA and provided a glucometer to use of routine glucose check. He was also provided Vitamin D supplement and low dose Lisinopril for vitamin D deficiency and renal protection respectively. He was advised to follow up with PCP after discharge and was further advised to come back or seek immediate care should his symptoms persist or get worse. HPI Initial Comments: This is a 23 yo healthy young white male who comes in feeling unwell in the past several weeks after being seen at the clinic for complaints of primarily polydipsia and polyuria over the past 4 days. His chief complaints were associated with malaise along with generalized weakness and was diagnosed with new onset of diabetes. He was referred to ED from the clinic for further evaluation and was told he has Type 1 Diabetes. His initial work up in ED shows a WBC significant for MCHC of 35.8, RDW of 34.6 , and Neutrophils of 62%. His chemistry is significant for BS of 333, A1C of 9.7 , Serum Osm of 301, Total Bilirubin of 2.1, and ALT of 80. His UA is negative for UTI but 2+ pos for ketones and glucose. His serum ketones level is 1.82. Patient is being admitted treatment of for new onset of diabetes likely FREDRICK. 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), managed as type 1 SNOMED Code(s): 201981919 ICD Code: E13.9 - OTHER SPECIFIED DIABETES MELLITUS WITHOUT COMPLICATIONS Status: Acute Problem Details: - Pending Antibodies Studies (2) Vitamin D deficiency SNOMED Code(s): 32440646 ICD Code: E55.9 - VITAMIN D DEFICIENCY, UNSPECIFIED Status: Acute - Patient Summary/Data Operative Procedure(s) Performed: None Complications: None Consults: Consultations 08/12/18 17:49 Consult to Case Management/Electrical Machinist [CONS] Routine Consult to Diabetic Nurse Specialist [CONS] Routine Consult to C 13 Catapult Operator [CONS] Routine Labs Pending at D/C: None Recommended Follow-up Testing/Procedures: None Planned Operative Procedure(s) after DC: None - Patient Instructions Diet: Usual Diet as Tolerated, Diabetic Diet Activity: As Tolerated Driving: Do Not Drive Showering/Bathing: May Shower Notify Provider of: Fever, Increased Pain, Nausea and/or Vomiting Other/Special Instructions: - Please take all new medications as directed. - Continue routine home activities as tolerated. - Recommend your follow ship engineer's and diabetic instructions. - Make sure you have glucose tablest with you all the time. - Call or follow up with you PCP for any questions or concerns after discharge. - Follow up with PCP in 7-10 days. - Come back or seek immediate care should your symptoms persist or gets worse. - Discharge Plan *PRESCRIPTION DRUG MONITORING PROGRAM REVIEWED*: Not Applicable *COPY OF PRESCRIPTION DRUG MONITORING REPORT IN PATIENT BRIANA: Not Applicable Prescriptions/Med Rec: Cholecalciferol (Vitamin D3) [Vitamin D3] 5,000 unit PO DAILY #30 tablet Insulin Detemir [Levemir Flextouch] 15 unit SUBCUT BID #1 ml Insulin Lispro [HumaLOG] See Protocol SQ ACBED PRN #1 unit PRN Reason: FREDRICK Lisinopril 10 mg PO DAILY #30 tablet Home Medications: Home Meds Cholecalciferol (Vitamin D3) [Vitamin D3] 5,000 unit PO DAILY #30 tablet [Rx] Insulin Detemir [Levemir Flextouch] 15 unit SUBCUT BID #1 ml 08/13/18 [Rx] Insulin Lispro [HumaLOG] See Protocol SQ ACBED PRN #1 unit 08/13/18 [Rx] Lisinopril 10 mg PO DAILY #30 tablet 08/13/18 [Rx] Patient Handouts: Insulin Storage and Care, Insulin Treatment for Diabetes, Diabetes Mellitus and Sick Day Management, Type 1 Diabetes Mellitus, Self Care, Adult, [id number], How to Avoid Diabetes Mellitus Problems, Blood Glucose Monitoring, Adult Referrals: PCP,Not In Area [Primary Care Provider] - - Discharge Summary/Plan Comment DC Time >30 min.: Yes (45 mins) Discharge Summary/Plan Comment: Discharge to Home - General Info Date of Service: 08/13/18 Admission Dx/Problem (Free Text: Admission Diagnosis/Problem Admission Diagnosis/Problem Diabetes mellitus Subjective Update: Follow Up Functional Status: Reports: Pain Controlled, Tolerating Diet, Ambulating, Urinating. Denies: New Symptoms - Review of Systems General: Denies: Fever, Weakness, Fatigue, Malaise, Chills, Night Sweats HEENT: Reports: No Symptoms Pulmonary: Denies: Shortness of Breath, Cough, Sputum, Hemoptysis Cardiovascular: Reports: No Symptoms. Denies: Chest Pain, Palpitations, Dyspnea on Exertion, Orthopnea, Lightheadedness Gastrointestinal: Denies: Abdominal Pain, Decreased Appetite, Diarrhea, Difficulty Swallowing, Nausea, Vomiting Genitourinary: Denies: Dysuria, Frequency, Burning, Incontinence, Hematuria, Retention Musculoskeletal: Reports: No Symptoms Skin: Denies: Cyanosis, Jaundice, Mottled, Pallor, Diaphoresis, Dryness, Pruritis Neurological: Denies: Confusion, Dizziness, Headache, Paresthesia, Seizure, Trouble Speaking, Weakness, Change in Speech, Gait Disturbance Psychiatric: Denies: Confusion, Depression, Mood Lability, Anxiety, Agitation, Hallucinations, Suicidal Ideation Systems Review Comment: No overnight or acute issues. He rested well and no complaints this AM. His BS now in the 200s. His vitals are stable. - Patient Data Vitals - Most Recent: Last Vital Signs Temp 36.9 C 08/13/18 12:00 Pulse 68 08/13/18 12:00 Resp 16 08/13/18 12:00 BP 113/57 L 08/13/18 12:00 Pulse Ox 99 08/13/18 12:00 Weight - Most Recent: 63.503 kg I&O - Last 24 hours: Intake & Output 08/12/18 08/13/18 08/13/18 22:59 06:59 14:59 Intake Total 922 3000 240 Output Total 500 Balance 422 3000 240 Lab Results - Last 24 hrs: Laboratory Results - last 24 hr 08/12/18 08/12/18 08/12/18 Range/Units 14:44 15:10 15:10 WBC 6.60 (4.23-9.07) K/mm3 RBC 5.67 (4.63-6.08) M/mm3 Hgb 16.2 (13.7-17.5) gm/L Hct 45.3 (40.1-51.0) % MCV 79.9 (79.0-92.2) fl MCH 28.6 (25.7-32.2) pg MCHC 35.8 H (32.2-35.5) g/dl RDW Std Deviation 34.6 L (35.1-43.9) fL Plt Count 275 (163-337) K/mm3 MPV 11.0 (9.4-12.3) fl Neut % (Auto) (34.0-67.9) % Lymph % (Auto) (21.8-53.1) % [place] % (Auto) (5.3-12.2) % Eos % (Auto) (0.8-7.0) Baso % (Auto) (0.1-1.2) % Neut # (Auto) (1.78-5.38) K/mm3 Lymph # (Auto) (1.32-3.57) K/mm3 [place] # (Auto) (0.30-0.82) K/mm3 Eos # (Auto) (0.04-0.54) K/mm3 Baso # (Auto) (0.01-0.08) K/mm3 Neutrophils % (Manual) 62 H (40-60) % Band Neutrophils % 0 (0-10) % Lymphocytes % (Manual) 35 (20-40) % Atypical Lymphs % 0 % Monocytes % (Manual) 2 (2-10) % Eosinophils % (Manual) 1 (0.8-7.0) % Basophils % (Manual) 0 L (0.2-1.2) Platelet Estimate Adequate RBC Morph Comment Normal Sodium 137 (136-145) mEq/L Potassium 3.7 (3.5-5.1) mEq/L Chloride 98 (98-107) mEq/L Carbon Dioxide 28 (21-32) mEq/L Anion Gap 14.7 (5-15) BUN 15 (7-18) mg/dL Creatinine 1.0 (0.7-1.3) mg/dL Est Cr Clr Drug Dosing 98.53 mL/min Estimated GFR (MDRD) > 60 (>60) mL/min BUN/Creatinine Ratio 15.0 (14-18) Glucose 333 H (74-106) mg/dL POC Glucose 337 H (70-105) mg/dL Hemoglobin A1c (4.50-6.20) % Serum Osmolality 301 H (280-300) mosm/kg Lactic Acid (0.4-2.0) mmol/L Calcium 9.1 (8.5-10.1) mg/dL Magnesium 1.9 (1.8-2.4) mg/dl Total Bilirubin 2.1 H (0.2-1.0) mg/dL AST 26 (15-37) U/L ALT 80 H (16-63) U/L Alkaline Phosphatase 114 (46-116) U/L C-Reactive Protein < 0.2 (<1.0) mg/dL Total Protein 7.5 (6.4-8.2) g/dl Albumin 4.5 (3.4-5.0) g/dl Globulin 3.0 gm/dL Albumin/Globulin Ratio 1.5 (1-2) Triglycerides (<150) mg/dL Cholesterol (<200) mg/dL LDL Cholesterol Direct (<100) mg/dL HDL Cholesterol (40-59) mg/dL Vitamin D 25-Hydroxy (30.0-100.0) ng/ml Free T4 (0.76-1.46) ng/dL TSH 3rd Generation (0.358-3.74) uIU/mL Urine Color (Yellow) Urine Appearance (Clear) Urine pH (5.0-8.0) Ur Specific [place] (1.005-1.030) Urine Protein (Negative) Urine Glucose (UA) (Negative) Urine Ketones (Negative) Urine Occult Blood (Negative) Urine Nitrite (Negative) Urine Bilirubin (Negative) Urine Urobilinogen (0.2-1.0) Ur Leukocyte Esterase (Negative) Urine RBC (0-5) /hpf Urine WBC (0-5) /hpf Ur Epithelial Cells (0-5) /hpf Urine Bacteria (FEW) /hpf Urine Mucus (FEW) /hpf Ur Random Creatinine (30.0-125.0) mg/dL Ur Random Microalbumin (1.3-20.0) mg/L Microalb/Creat Ratio (0-30) mg/g Ketones (0.0-0.3) mM 08/12/18 08/12/18 08/12/18 Range/Units 15:10 15:10 15:10 WBC (4.23-9.07) K/mm3 RBC (4.63-6.08) M/mm3 Hgb (13.7-17.5) gm/L Hct (40.1-51.0) % MCV (79.0-92.2) fl MCH (25.7-32.2) pg MCHC (32.2-35.5) g/dl RDW Std Deviation (35.1-43.9) fL Plt Count (163-337) K/mm3 MPV (9.4-12.3) fl Neut % (Auto) (34.0-67.9) % Lymph % (Auto) (21.8-53.1) % [place] % (Auto) (5.3-12.2) % Eos % (Auto) (0.8-7.0) Baso % (Auto) (0.1-1.2) % Neut # (Auto) (1.78-5.38) K/mm3 Lymph # (Auto) (1.32-3.57) K/mm3 [place] # (Auto) (0.30-0.82) K/mm3 Eos # (Auto) (0.04-0.54) K/mm3 Baso # (Auto) (0.01-0.08) K/mm3 Neutrophils % (Manual) (40-60) % Band Neutrophils % (0-10) % Lymphocytes % (Manual) (20-40) % Atypical Lymphs % % Monocytes % (Manual) (2-10) % Eosinophils % (Manual) (0.8-7.0) % Basophils % (Manual) (0.2-1.2) Platelet Estimate RBC Morph Comment Sodium (136-145) mEq/L Potassium (3.5-5.1) mEq/L Chloride (98-107) mEq/L Carbon Dioxide (21-32) mEq/L Anion Gap (5-15) BUN (7-18) mg/dL Creatinine (0.7-1.3) mg/dL Est Cr Clr Drug Dosing mL/min Estimated GFR (MDRD) (>60) mL/min BUN/Creatinine Ratio (14-18) Glucose (74-106) mg/dL POC Glucose (70-105) mg/dL Hemoglobin A1c 9.70 H (4.50-6.20) % Serum Osmolality (280-300) mosm/kg Lactic Acid (0.4-2.0) mmol/L Calcium (8.5-10.1) mg/dL Magnesium (1.8-2.4) mg/dl Total Bilirubin (0.2-1.0) mg/dL AST (15-37) U/L ALT (16-63) U/L Alkaline Phosphatase (46-116) U/L C-Reactive Protein (<1.0) mg/dL Total Protein (6.4-8.2) g/dl Albumin (3.4-5.0) g/dl Globulin gm/dL Albumin/Globulin Ratio (1-2) Triglycerides (<150) mg/dL Cholesterol (<200) mg/dL LDL Cholesterol Direct (<100) mg/dL HDL Cholesterol (40-59) mg/dL Vitamin D 25-Hydroxy (30.0-100.0) ng/ml Free T4 (0.76-1.46) ng/dL TSH 3rd Generation 1.595 (0.358-3.74) uIU/mL Urine Color (Yellow) Urine Appearance (Clear) Urine pH (5.0-8.0) Ur Specific [place] (1.005-1.030) Urine Protein (Negative) Urine Glucose (UA) (Negative) Urine Ketones (Negative) Urine Occult Blood (Negative) Urine Nitrite (Negative) Urine Bilirubin (Negative) Urine Urobilinogen (0.2-1.0) Ur Leukocyte Esterase (Negative) Urine RBC (0-5) /hpf Urine WBC (0-5) /hpf Ur Epithelial Cells (0-5) /hpf Urine Bacteria (FEW) /hpf Urine Mucus (FEW) /hpf Ur Random Creatinine (30.0-125.0) mg/dL Ur Random Microalbumin (1.3-20.0) mg/L Microalb/Creat Ratio (0-30) mg/g Ketones 1.82 (0.0-0.3) mM 08/12/18 08/12/18 08/12/18 Range/Units 15:10 15:35 17:10 WBC (4.23-9.07) K/mm3 RBC (4.63-6.08) M/mm3 Hgb (13.7-17.5) gm/L Hct (40.1-51.0) % MCV (79.0-92.2) fl MCH (25.7-32.2) pg MCHC (32.2-35.5) g/dl RDW Std Deviation (35.1-43.9) fL Plt Count (163-337) K/mm3 MPV (9.4-12.3) fl Neut % (Auto) (34.0-67.9) % Lymph % (Auto) (21.8-53.1) % [place] % (Auto) (5.3-12.2) % Eos % (Auto) (0.8-7.0) Baso % (Auto) (0.1-1.2) % Neut # (Auto) (1.78-5.38) K/mm3 Lymph # (Auto) (1.32-3.57) K/mm3 [place] # (Auto) (0.30-0.82) K/mm3 Eos # (Auto) (0.04-0.54) K/mm3 Baso # (Auto) (0.01-0.08) K/mm3 Neutrophils % (Manual) (40-60) % Band Neutrophils % (0-10) % Lymphocytes % (Manual) (20-40) % Atypical Lymphs % % Monocytes % (Manual) (2-10) % Eosinophils % (Manual) (0.8-7.0) % Basophils % (Manual) (0.2-1.2) Platelet Estimate RBC Morph Comment Sodium (136-145) mEq/L Potassium (3.5-5.1) mEq/L Chloride (98-107) mEq/L Carbon Dioxide (21-32) mEq/L Anion Gap (5-15) BUN (7-18) mg/dL Creatinine (0.7-1.3) mg/dL Est Cr Clr Drug Dosing mL/min Estimated GFR (MDRD) (>60) mL/min BUN/Creatinine Ratio (14-18) Glucose (74-106) mg/dL POC Glucose 195 H (70-105) mg/dL Hemoglobin A1c (4.50-6.20) % Serum Osmolality (280-300) mosm/kg Lactic Acid 1.2 (0.4-2.0) mmol/L Calcium (8.5-10.1) mg/dL Magnesium (1.8-2.4) mg/dl Total Bilirubin (0.2-1.0) mg/dL AST (15-37) U/L ALT (16-63) U/L Alkaline Phosphatase (46-116) U/L C-Reactive Protein (<1.0) mg/dL Total Protein (6.4-8.2) g/dl Albumin (3.4-5.0) g/dl Globulin gm/dL Albumin/Globulin Ratio (1-2) Triglycerides (<150) mg/dL Cholesterol (<200) mg/dL LDL Cholesterol Direct (<100) mg/dL HDL Cholesterol (40-59) mg/dL Vitamin D 25-Hydroxy (30.0-100.0) ng/ml Free T4 0.92 (0.76-1.46) ng/dL TSH 3rd Generation (0.358-3.74) uIU/mL Urine Color (Yellow) Urine Appearance (Clear) Urine pH (5.0-8.0) Ur Specific [place] (1.005-1.030) Urine Protein (Negative) Urine Glucose (UA) (Negative) Urine Ketones (Negative) Urine Occult Blood (Negative) Urine Nitrite (Negative) Urine Bilirubin (Negative) Urine Urobilinogen (0.2-1.0) Ur Leukocyte Esterase (Negative) Urine RBC (0-5) /hpf Urine WBC (0-5) /hpf Ur Epithelial Cells (0-5) /hpf Urine Bacteria (FEW) /hpf Urine Mucus (FEW) /hpf Ur Random Creatinine (30.0-125.0) mg/dL Ur Random Microalbumin (1.3-20.0) mg/L Microalb/Creat Ratio (0-30) mg/g Ketones (0.0-0.3) mM 08/12/18 08/12/18 08/12/18 Range/Units 19:06 21:20 21:20 WBC (4.23-9.07) K/mm3 RBC (4.63-6.08) M/mm3 Hgb (13.7-17.5) gm/L Hct (40.1-51.0) % MCV (79.0-92.2) fl MCH (25.7-32.2) pg MCHC (32.2-35.5) g/dl RDW Std Deviation (35.1-43.9) fL Plt Count (163-337) K/mm3 MPV (9.4-12.3) fl Neut % (Auto) (34.0-67.9) % Lymph % (Auto) (21.8-53.1) % [place] % (Auto) (5.3-12.2) % Eos % (Auto) (0.8-7.0) Baso % (Auto) (0.1-1.2) % Neut # (Auto) (1.78-5.38) K/mm3 Lymph # (Auto) (1.32-3.57) K/mm3 [place] # (Auto) (0.30-0.82) K/mm3 Eos # (Auto) (0.04-0.54) K/mm3 Baso # (Auto) (0.01-0.08) K/mm3 Neutrophils % (Manual) (40-60) % Band Neutrophils % (0-10) % Lymphocytes % (Manual) (20-40) % Atypical Lymphs % % Monocytes % (Manual) (2-10) % Eosinophils % (Manual) (0.8-7.0) % Basophils % (Manual) (0.2-1.2) Platelet Estimate RBC Morph Comment Sodium (136-145) mEq/L Potassium (3.5-5.1) mEq/L Chloride (98-107) mEq/L Carbon Dioxide (21-32) mEq/L Anion Gap (5-15) BUN (7-18) mg/dL Creatinine (0.7-1.3) mg/dL Est Cr Clr Drug Dosing mL/min Estimated GFR (MDRD) (>60) mL/min BUN/Creatinine Ratio (14-18) Glucose (74-106) mg/dL POC Glucose 194 H (70-105) mg/dL Hemoglobin A1c (4.50-6.20) % Serum Osmolality (280-300) mosm/kg Lactic Acid (0.4-2.0) mmol/L Calcium (8.5-10.1) mg/dL Magnesium (1.8-2.4) mg/dl Total Bilirubin (0.2-1.0) mg/dL AST (15-37) U/L ALT (16-63) U/L Alkaline Phosphatase (46-116) U/L C-Reactive Protein (<1.0) mg/dL Total Protein (6.4-8.2) g/dl Albumin (3.4-5.0) g/dl Globulin gm/dL Albumin/Globulin Ratio (1-2) Triglycerides (<150) mg/dL Cholesterol (<200) mg/dL LDL Cholesterol Direct (<100) mg/dL HDL Cholesterol (40-59) mg/dL Vitamin D 25-Hydroxy (30.0-100.0) ng/ml Free T4 (0.76-1.46) ng/dL TSH 3rd Generation (0.358-3.74) uIU/mL Urine Color Yellow (Yellow) Urine Appearance Clear (Clear) Urine pH 6.0 (5.0-8.0) Ur Specific [place] 1.025 (1.005-1.030) Urine Protein Negative (Negative) Urine Glucose (UA) 2+ H (Negative) Urine Ketones 2+ H (Negative) Urine Occult Blood Negative (Negative) Urine Nitrite Negative (Negative) Urine Bilirubin Negative (Negative) Urine Urobilinogen 0.2 (0.2-1.0) Ur Leukocyte Esterase Negative (Negative) Urine RBC Not seen (0-5) /hpf Urine WBC Not seen (0-5) /hpf Ur Epithelial Cells 0-5 (0-5) /hpf Urine Bacteria Occasional (FEW) /hpf Urine Mucus Few (FEW) /hpf Ur Random Creatinine 117.6 (30.0-125.0) mg/dL Ur Random Microalbumin 15.7 (1.3-20.0) mg/L Microalb/Creat Ratio 13.3 (0-30) mg/g Ketones (0.0-0.3) mM 08/12/18 08/13/18 08/13/18 Range/Units 21:23 06:05 06:05 WBC 6.05 (4.23-9.07) K/mm3 RBC 4.82 (4.63-6.08) M/mm3 Hgb 14.5 (13.7-17.5) gm/L Hct 40.2 (40.1-51.0) % MCV 83.4 (79.0-92.2) fl MCH 30.1 (25.7-32.2) pg MCHC 36.1 H (32.2-35.5) g/dl RDW Std Deviation 36.7 (35.1-43.9) fL Plt Count 258 (163-337) K/mm3 MPV 10.7 (9.4-12.3) fl Neut % (Auto) 52.8 (34.0-67.9) % Lymph % (Auto) 35.5 (21.8-53.1) % [place] % (Auto) 7.9 (5.3-12.2) % Eos % (Auto) 3.5 (0.8-7.0) Baso % (Auto) 0.3 (0.1-1.2) % Neut # (Auto) 3.19 (1.78-5.38) K/mm3 Lymph # (Auto) 2.15 (1.32-3.57) K/mm3 [place] # (Auto) 0.48 (0.30-0.82) K/mm3 Eos # (Auto) 0.21 (0.04-0.54) K/mm3 Baso # (Auto) 0.02 (0.01-0.08) K/mm3 Neutrophils % (Manual) (40-60) % Band Neutrophils % (0-10) % Lymphocytes % (Manual) (20-40) % Atypical Lymphs % % Monocytes % (Manual) (2-10) % Eosinophils % (Manual) (0.8-7.0) % Basophils % (Manual) (0.2-1.2) Platelet Estimate RBC Morph Comment Sodium 137 (136-145) mEq/L Potassium 4.8 (3.5-5.1) mEq/L Chloride 105 (98-107) mEq/L Carbon Dioxide 27 (21-32) mEq/L Anion Gap 9.8 (5-15) BUN 14 (7-18) mg/dL Creatinine 0.8 (0.7-1.3) mg/dL Est Cr Clr Drug Dosing 128.60 mL/min Estimated GFR (MDRD) > 60 (>60) mL/min BUN/Creatinine Ratio 17.5 (14-18) Glucose 375 H 230 H (74-106) mg/dL POC Glucose (70-105) mg/dL Hemoglobin A1c (4.50-6.20) % Serum Osmolality (280-300) mosm/kg Lactic Acid (0.4-2.0) mmol/L Calcium 8.4 L (8.5-10.1) mg/dL Magnesium 1.7 L (1.8-2.4) mg/dl Total Bilirubin (0.2-1.0) mg/dL AST (15-37) U/L ALT (16-63) U/L Alkaline Phosphatase (46-116) U/L C-Reactive Protein (<1.0) mg/dL Total Protein (6.4-8.2) g/dl Albumin (3.4-5.0) g/dl Globulin gm/dL Albumin/Globulin Ratio (1-2) Triglycerides 61 (<150) mg/dL Cholesterol 132 (<200) mg/dL LDL Cholesterol Direct 104 H* (<100) mg/dL HDL Cholesterol 27.0 L (40-59) mg/dL Vitamin D 25-Hydroxy 17.2 L (30.0-100.0) ng/ml Free T4 (0.76-1.46) ng/dL TSH 3rd Generation (0.358-3.74) uIU/mL Urine Color (Yellow) Urine Appearance (Clear) Urine pH (5.0-8.0) Ur Specific [place] (1.005-1.030) Urine Protein (Negative) Urine Glucose (UA) (Negative) Urine Ketones (Negative) Urine Occult Blood (Negative) Urine Nitrite (Negative) Urine Bilirubin (Negative) Urine Urobilinogen (0.2-1.0) Ur Leukocyte Esterase (Negative) Urine RBC (0-5) /hpf Urine WBC (0-5) /hpf Ur Epithelial Cells (0-5) /hpf Urine Bacteria (FEW) /hpf Urine Mucus (FEW) /hpf Ur Random Creatinine (30.0-125.0) mg/dL Ur Random Microalbumin (1.3-20.0) mg/L Microalb/Creat Ratio (0-30) mg/g Ketones (0.0-0.3) mM 08/13/18 08/13/18 Range/Units 06:32 11:28 WBC (4.23-9.07) K/mm3 RBC (4.63-6.08) M/mm3 Hgb (13.7-17.5) gm/L Hct (40.1-51.0) % MCV (79.0-92.2) fl MCH (25.7-32.2) pg MCHC (32.2-35.5) g/dl RDW Std Deviation (35.1-43.9) fL Plt Count (163-337) K/mm3 MPV (9.4-12.3) fl Neut % (Auto) (34.0-67.9) % Lymph % (Auto) (21.8-53.1) % [place] % (Auto) (5.3-12.2) % Eos % (Auto) (0.8-7.0) Baso % (Auto) (0.1-1.2) % Neut # (Auto) (1.78-5.38) K/mm3 Lymph # (Auto) (1.32-3.57) K/mm3 [place] # (Auto) (0.30-0.82) K/mm3 Eos # (Auto) (0.04-0.54) K/mm3 Baso # (Auto) (0.01-0.08) K/mm3 Neutrophils % (Manual) (40-60) % Band Neutrophils % (0-10) % Lymphocytes % (Manual) (20-40) % Atypical Lymphs % % Monocytes % (Manual) (2-10) % Eosinophils % (Manual) (0.8-7.0) % Basophils % (Manual) (0.2-1.2) Platelet Estimate RBC Morph Comment Sodium (136-145) mEq/L Potassium (3.5-5.1) mEq/L Chloride (98-107) mEq/L Carbon Dioxide (21-32) mEq/L Anion Gap (5-15) BUN (7-18) mg/dL Creatinine (0.7-1.3) mg/dL Est Cr Clr Drug Dosing mL/min Estimated GFR (MDRD) (>60) mL/min BUN/Creatinine Ratio (14-18) Glucose (74-106) mg/dL POC Glucose 257 H 271 H (70-105) mg/dL Hemoglobin A1c (4.50-6.20) % Serum Osmolality (280-300) mosm/kg Lactic Acid (0.4-2.0) mmol/L Calcium (8.5-10.1) mg/dL Magnesium (1.8-2.4) mg/dl Total Bilirubin (0.2-1.0) mg/dL AST (15-37) U/L ALT (16-63) U/L Alkaline Phosphatase (46-116) U/L C-Reactive Protein (<1.0) mg/dL Total Protein (6.4-8.2) g/dl Albumin (3.4-5.0) g/dl Globulin gm/dL Albumin/Globulin Ratio (1-2) Triglycerides (<150) mg/dL Cholesterol (<200) mg/dL LDL Cholesterol Direct (<100) mg/dL HDL Cholesterol (40-59) mg/dL Vitamin D 25-Hydroxy (30.0-100.0) ng/ml Free T4 (0.76-1.46) ng/dL TSH 3rd Generation (0.358-3.74) uIU/mL Urine Color (Yellow) Urine Appearance (Clear) Urine pH (5.0-8.0) Ur Specific [place] (1.005-1.030) Urine Protein (Negative) Urine Glucose (UA) (Negative) Urine Ketones (Negative) Urine Occult Blood (Negative) Urine Nitrite (Negative) Urine Bilirubin (Negative) Urine Urobilinogen (0.2-1.0) Ur Leukocyte Esterase (Negative) Urine RBC (0-5) /hpf Urine WBC (0-5) /hpf Ur Epithelial Cells (0-5) /hpf Urine Bacteria (FEW) /hpf Urine Mucus (FEW) /hpf Ur Random Creatinine (30.0-125.0) mg/dL Ur Random Microalbumin (1.3-20.0) mg/L Microalb/Creat Ratio (0-30) mg/g Ketones (0.0-0.3) mM Med Orders - Current: Current Medications Acetaminophen (Tylenol) 650 mg PO Q4H PRN PRN Reason: Pain (Mild 1-3)/fever Hydrocodone Bitart/Acetaminophen ([place] 325-5 Mg) 1 tab PO Q4H PRN PRN Reason: Pain (moderate 4-6) Albuterol/Ipratropium (Duoneb 3.0-0.5 Mg/3 Ml) 3 ml NEB Q4H PRN PRN Reason: Shortness Of Breath/wheezing Alogliptin Benzoate (Alogliptin) 25 mg PO DAILY [facility] Last Admin: 08/13/18 08:51 Dose: 25 mg Bisacodyl (Dulcolax) 5 mg PO DAILY PRN PRN Reason: Constipation Cholecalciferol (Vitamin D3) 5,000 unit PO DAILY [facility] Last Admin: 08/13/18 08:50 Dose: 5,000 unit Docusate Sodium (Colace) 100 mg PO BID PRN PRN Reason: Constipation Famotidine (Pepcid) 20 mg PO BID [facility] Last Admin: 08/13/18 08:50 Dose: 20 mg Glipizide (Glucotrol Xl) 2.5 mg PO BID [facility] Last Admin: 08/13/18 08:50 Dose: 2.5 mg Hydralazine HCl (Apresoline) 20 mg IVPUSH Q4H PRN PRN Reason: Hypertension Promethazine HCl 6.25 mg/ (Sodium Chloride) 50.25 mls @ 100 mls/hr IV Q6H PRN PRN Reason: Nausea/Vomiting Insulin Human Lispro (Humalog) 0 unit SUBCUT QIDACANDBED [facility]; Protocol Last Admin: 08/13/18 12:11 Dose: 6 units Lorazepam (Ativan) 2 mg IVPUSH Q4H PRN PRN Reason: Seizures Magnesium Sulfate (Pharmacy To Dose - Magnesium Replacement) 1 dose .XX ASDIRECTED PRN PRN Reason: RX TO WATCH MG LEVELS Metoprolol Tartrate (Lopressor) 5 mg IVPUSH Q4H PRN PRN Reason: Tachycardia Nicotine (Habitrol) 21 mg TRDERM DAILY PRN PRN Reason: Nicotine Dependence Ondansetron HCl (Zofran) 4 mg IV Q4H PRN PRN Reason: Nausea/Vomiting Polyethylene Glycol (Miralax) 17 gm PO DAILY PRN PRN Reason: Constipation Potassium Chloride (Pharmacy To Dose - Potassium Replacement) 1 dose .XX ASDIRECTED PRN PRN Reason: RX TO WATCH K+ LEVELS Senna/Docusate Sodium (Senna Plus) 1 tab PO BID PRN PRN Reason: Constipation Temazepam (Restoril) 7.5 mg PO BEDTIME PRN PRN Reason: Sleep Discontinued Medications Sodium Chloride (Normal Saline) 1,000 mls @ 999 mls/hr IV ASDIRECTED [facility] Last Admin: 08/12/18 15:19 Dose: 999 mls/hr Insulin Human Regular 100 unit (/ Sodium Chloride) 100 mls @ 1 mls/hr IV TITRATE [facility] Last Infusion: 08/12/18 19:09 Dose: 0 unit/hr, 0 mls/hr Sodium Chloride (Normal Saline) 1,000 mls @ 999 mls/hr IV ONETIME ONE Stop: 08/12/18 17:19 Last Admin: 08/12/18 16:23 Dose: 999 mls/hr Sodium Chloride (Normal Saline) 1,000 mls @ 500 mls/hr IV ASDIRECTED [facility] Potassium Chloride/Dextrose/Sod Cl (D5 Ns With 20 Meq Kcl) 1,000 mls @ 250 mls/ hr IV ASDIRECTED [facility] Last Admin: 08/12/18 17:33 Dose: 250 mls/hr Magnesium Oxide (Magnesium Oxide) 400 mg PO ONETIME ONE Stop: 08/12/18 18:16 Last Admin: 08/12/18 19:03 Dose: 400 mg Magnesium Oxide (Magnesium Oxide) 800 mg PO ONETIME ONE Stop: 08/13/18 11:01 Last Admin: 08/13/18 12:11 Dose: 800 mg Metformin HCl (Glucophage) 500 mg PO BIDMEALS [facility] Potassium Chloride (Klor-Con M20) 40 meq PO Q4H [facility] Stop: 08/12/18 22:16 Last Admin: 08/12/18 21:14 Dose: 40 meq - Exam General: Reports: Alert, Oriented, Cooperative, No Acute Distress HEENT: Reports: Pupils Equal, Pupils Reactive, EOMI, Mucous Membr. Moist/[place] Neck: Reports: Supple Lungs: Reports: Clear to Auscultation, Normal Respiratory Effort Cardiovascular: Reports: Regular Rate, Regular Rhythm GI/Abdominal Exam: Normal Bowel Sounds, Soft, Non-Tender, No Organomegaly, No Distention, No Abnormal Bruit, No Mass (Male) Exam: Deferred Rectal (Males) Exam: Deferred Back Exam: Reports: Normal Inspection, Full Range of Motion Extremities: Normal Inspection, Normal Range of Motion, Non-Tender, No Pedal Edema, Normal Capillary Refill Skin: Reports: Warm, Dry, Intact Neurological: Reports: No New Focal Deficit Psy/Mental Status: Reports: Alert, Normal Affect, Normal Mood
--- NOTE | 2018-08-13 21:06 | PCM.SN ---
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 Per family hx/o his mother admits she has Yosi's Disease. Given this information, his diabetes further confirms FREDRICK. We also found out from the labs (Juan), it could take 7-10 days for those autoantibodies to comeback. At this point, it would make sense to just treat him with insulin LA/SA since it would not take long for the results to come back. Patient is now stable for discharge. He has gotten diabetic education and dietary consultation. He will be discharged with LA and SA. Educated him about symptoms to watch out. Also each time he does not feel good to check his glucose and educated his significant other or co-workers how to use his SA insulin for hypoglycemic/hyperglycemic crisis. Dr. Carole Sarmiento, PCP, called and updated about his discharge care plan. She was told to follow up those send out tests. On the day of discharge, we stressed the importance of dietary and medical compliance. He was advised to call his PCP for any questions or concerns after discharge. He was further advised to come back or seek immediate care should his symptoms persist or get worse. The patient and dad at bedside expressed understanding and in agreement with the plans as discussed above. All questions were answered.
== END 2018-08-13 13:00 | disposition home or self-care (01) | DRG 639 ==
LOC: JD.ED 14:34 → UNDOADMIN 16:59 → JD.ICU 16:59
PROVIDERS: ADMIT Emergency Medicine; ATTEND Internal Medicine
DX: E13.65 Other specified diabetes mellitus with hyperglycemia (principal); E55.9 Vitamin D deficiency, unspecified; Z87.891 Personal history of nicotine dependence
CPT/HCPCS: 36415; 71045; 71045-26; 80048; 80053; 80061; 81001; 82009; 82043; 82306; 82947; 82962; 83036; 83525; 83605; 83735; 83930; 84439; 84443; 84681; 85007; 85025; 85027; 86140; 86337; 93005; 96361; 96365; 99285-25; A9270-GY; J1815-GY; J3480; J7040

== ENCOUNTER 2019-06-07 13:29 | Emergency (ER) | payer BC, OTHER ==
--- NOTE | 2019-06-07 13:49 | EDM.PDOC ---
ED HPI GENERAL MEDICAL PROBLEM - General Chief Complaint: Diabetic Complaint Stated Complaint: DIABETIC COMPLAINT Time Seen by Provider: 06/07/19 13:35 Source of Information: Reports: Patient History Limitations: Reports: No Limitations - History of Present Illness INITIAL COMMENTS - FREE TEXT/NARRATIVE: The patient presents with a cough, congestion, runny nose and fever. This has been going on for about a week. He also has body aches. He is type I diabetic and his blood sugars have been high at times. He had some 300s at times. He has been eating less. He has no abdominal pain, nausea or vomiting. Onset: Gradual Duration: Week(s): (1) Severity: Moderate Improves with: Reports: None Worsens with: Reports: None Associated Symptoms: Reports: Cough, Fever/Chills, Shortness of Breath. Denies : Chest Pain, Headaches, Nausea/Vomiting - Related Data Allergies Allergy/AdvReac Type Severity Reaction Status Date / Time No Known Allergies Allergy Verified 06/07/19 13:37 Home Meds: Home Meds Cholecalciferol (Vitamin D3) [Vitamin D3] 5,000 unit PO DAILY #30 tablet [Rx] Insulin Detemir [Levemir Flextouch] 15 unit SUBCUT BID #1 ml 08/13/18 [Rx] Insulin Lispro [HumaLOG] See Protocol SQ ACBED PRN #1 unit 08/13/18 [Rx] Lisinopril 10 mg PO DAILY #30 tablet 08/13/18 [Rx] Past Medical History Cardiovascular History: Reports: None Respiratory History: Reports: None Genitourinary History: Reports: None Musculoskeletal History: Reports: Other (See Below) Other Musculoskeletal History: fracture of femur Neurological History: Reports: None Psychiatric History: Reports: None Endocrine/Metabolic History: Reports: Diabetes, Type I Hematologic History: Reports: None Immunologic History: Reports: None Oncologic (Cancer) History: Reports: None Dermatologic History: Reports: None - Infectious Disease History Infectious Disease History: Reports: None - Past Surgical History HEENT Surgical History: Reports: Oral Surgery, Tonsillectomy GI Surgical History: Reports: Appendectomy Social & Family History - Family History Endocrine/Metabolic: Reports: None, Other (See Below) Other Endocrine/Metabolic Family History: Diabetes unknown which type - Tobacco Use Smoking Status *Q: Former Smoker Used Tobacco, but Quit: Yes Month/Year Tobacco Last Used: 05/2019 - Caffeine Use Caffeine Use: Reports: None - Recreational Drug Use Recreational Drug Use: No - Living Situation & Occupation Living situation: Reports: Single Occupation: Employed ED ROS GENERAL - Review of Systems Review Of Systems: See Below Constitutional: Reports: Fever, Chills, Weakness HEENT: Reports: No Symptoms Respiratory: Reports: Cough. Denies: Shortness of Breath Cardiovascular: Reports: No Symptoms Endocrine: Reports: No Symptoms GI/Abdominal: Reports: No Symptoms : Reports: No Symptoms Musculoskeletal: Reports: No Symptoms ED EXAM GENERAL NO PERIP PULSE - Physical Exam Exam: See Below Exam Limited By: No Limitations General Appearance: Alert, No Apparent Distress Ears: Normal External Exam Nose: Normal Inspection Head: Atraumatic, Normocephalic Neck: Normal Inspection Respiratory/Chest: No Respiratory Distress, Lungs Clear, Normal Breath Sounds Cardiovascular: Regular Rate, Rhythm, No Edema, No Murmur GI/Abdominal: Soft, Non-Tender, No Organomegaly, No Mass Back Exam: Normal Inspection Extremities: Normal Inspection Course - Vital Signs Last Recorded V/S: Last Vital Signs Temp 97.6 F 06/07/19 13:34 Pulse 74 06/07/19 13:34 Resp 16 06/07/19 13:34 BP 141/77 H 06/07/19 13:34 Pulse Ox 97 06/07/19 13:34 - Orders/Labs/Meds Orders: Active Orders 24 hr Category Date Time Status Cardiac Monitoring [RC] . DIRECTED Care 06/07/19 13:46 Active Chest 2V [CR] Stat Exams 06/07/19 13:47 Taken Labs: Laboratory Tests 06/07/19 06/07/19 06/07/19 Range/Units 13:43 14:00 14:00 WBC 4.18 L (4.23-9.07) K/mm3 RBC 5.43 (4.63-6.08) M/mm3 Hgb 16.8 D (13.7-17.5) gm/dl Hct 46.4 (40.1-51.0) % MCV 85.5 (79.0-92.2) fl MCH 30.9 (25.7-32.2) pg MCHC 36.2 H (32.2-35.5) g/dl RDW Std Deviation 37.7 (35.1-43.9) fL Plt Count 195 (163-337) K/mm3 MPV 10.4 (9.4-12.3) fl Neut % (Auto) 46.7 (34.0-67.9) % Lymph % (Auto) 31.6 (21.8-53.1) % [place] % (Auto) 17.5 H (5.3-12.2) % Eos % (Auto) 3.8 (0.8-7.0) Baso % (Auto) 0.2 (0.1-1.2) % Neut # (Auto) 1.95 (1.78-5.38) K/mm3 Lymph # (Auto) 1.32 (1.32-3.57) K/mm3 [place] # (Auto) 0.73 (0.30-0.82) K/mm3 Eos # (Auto) 0.16 (0.04-0.54) K/mm3 Baso # (Auto) 0.01 (0.01-0.08) K/mm3 Manual Slide Review Abnormal smear VBG pH (7.30-7.40) Sodium 139 (136-145) mEq/L Potassium 4.5 (3.5-5.1) mEq/L Chloride 101 (98-107) mEq/L Carbon Dioxide 29 (21-32) mEq/L Anion Gap 13.5 (5-15) BUN 18 (7-18) mg/dL Creatinine 0.9 (0.7-1.3) mg/dL Est Cr Clr Drug Dosing 115.71 mL/min Estimated GFR (MDRD) > 60 (>60) mL/min BUN/Creatinine Ratio 20.0 H (14-18) Glucose 129 H (74-106) mg/dL POC Glucose 139 H (70-105) mg/dL Serum Osmolality 296 (280-300) mosm/kg Calcium 8.6 (8.5-10.1) mg/dL Total Bilirubin 0.6 (0.2-1.0) mg/dL AST 78 H (15-37) U/L ALT 53 (16-63) U/L Alkaline Phosphatase 94 (46-116) U/L Total Protein 6.6 (6.4-8.2) g/dl Albumin 3.7 (3.4-5.0) g/dl Globulin 2.9 gm/dL Albumin/Globulin Ratio 1.3 (1-2) Ketones (0.0-0.3) mM 06/07/19 06/07/19 Range/Units 14:00 14:18 WBC (4.23-9.07) K/mm3 RBC (4.63-6.08) M/mm3 Hgb (13.7-17.5) gm/dl Hct (40.1-51.0) % MCV (79.0-92.2) fl MCH (25.7-32.2) pg MCHC (32.2-35.5) g/dl RDW Std Deviation (35.1-43.9) fL Plt Count (163-337) K/mm3 MPV (9.4-12.3) fl Neut % (Auto) (34.0-67.9) % Lymph % (Auto) (21.8-53.1) % [place] % (Auto) (5.3-12.2) % Eos % (Auto) (0.8-7.0) Baso % (Auto) (0.1-1.2) % Neut # (Auto) (1.78-5.38) K/mm3 Lymph # (Auto) (1.32-3.57) K/mm3 [place] # (Auto) (0.30-0.82) K/mm3 Eos # (Auto) (0.04-0.54) K/mm3 Baso # (Auto) (0.01-0.08) K/mm3 Manual Slide Review VBG pH 7.39 (7.30-7.40) Sodium (136-145) mEq/L Potassium (3.5-5.1) mEq/L Chloride (98-107) mEq/L Carbon Dioxide (21-32) mEq/L Anion Gap (5-15) BUN (7-18) mg/dL Creatinine (0.7-1.3) mg/dL Est Cr Clr Drug Dosing mL/min Estimated GFR (MDRD) (>60) mL/min BUN/Creatinine Ratio (14-18) Glucose (74-106) mg/dL POC Glucose (70-105) mg/dL Serum Osmolality (280-300) mosm/kg Calcium (8.5-10.1) mg/dL Total Bilirubin (0.2-1.0) mg/dL AST (15-37) U/L ALT (16-63) U/L Alkaline Phosphatase (46-116) U/L Total Protein (6.4-8.2) g/dl Albumin (3.4-5.0) g/dl Globulin gm/dL Albumin/Globulin Ratio (1-2) Ketones 0.28 (0.0-0.3) mM - Re-Assessments/Exams Free Text/Narrative Re-Assessment/Exam: 06/07/19 15:30 I have ordered labs and CXR. His CBC looks good. His pH was normal at 7.39. 06/07/19 15:45 His glucose at bed side was 139. His glucose was 129 on blood draw. His AST was 78. His ketones were normal at 0.28. His CXR looks good. He is influenza B positive. Departure - Departure Time of Disposition: 15:50 Disposition: Home, Self-Care 01 Condition: Good Clinical Impression: Influenza B - Discharge Information *PRESCRIPTION DRUG MONITORING PROGRAM REVIEWED*: Not Applicable *COPY OF PRESCRIPTION DRUG MONITORING REPORT IN PATIENT BRIANA: Not Applicable Referrals: Carole Sarmiento MD [Primary Care Provider] - 1 Week Forms: ED Department Discharge Additional Instructions: Go home and rest. Drink plenty of fluids. Take motrin or tylenol for pain or fever. Please return if you are worse. Sepsis Event Note - Evaluation Sepsis Screening Result: No Definite Risk - Focused Exam Vital Signs: Vital Signs Temp Pulse Resp BP Pulse Ox 06/07/19 13:34 97.6 F 74 16 141/77 H 97 Date Exam was Performed: 06/07/19 Time Exam was Performed: 15:45 - My Orders Last 24 Hours: My Active Orders 06/07/19 13:46 Cardiac Monitoring [RC] . DIRECTED 06/07/19 13:47 Chest 2V [CR] Stat - Assessment/Plan Last 24 Hours: My Active Orders 06/07/19 13:46 Cardiac Monitoring [RC] . DIRECTED 06/07/19 13:47 Chest 2V [CR] Stat
--- NOTE | 2019-06-07 17:55 | CR ---
Chest: 2 views of the chest were obtained. Comparison: Previous chest x-ray of 08/12/18. Heart size and mediastinum are normal. Lungs are clear. Bony structures are unremarkable. Impression: 1. Nothing acute is appreciated on 2 view chest x-ray. Diagnostic code #1 This report was dictated in [place] Standard Time
== END 2019-06-07 16:00 | disposition home or self-care (01) ==
LOC: JD.ED 13:29
DX: J10.1 Influenza due to other identified influenza virus with other respiratory manifestations (principal); E10.9 Type 1 diabetes mellitus without complications; Z79.4 Long term (current) use of insulin; Z87.891 Personal history of nicotine dependence
CPT/HCPCS: 36415; 71046; 71046-26; 80053; 82009; 82800; 82962; 83930; 85025; 87804; 99281; 99285-25

== ENCOUNTER 2021-11-03 19:50 | Emergency (ER) | payer BC ==
[2021-11-03 20:52] LABS: ESTIMATED GFR > 60 mL/min (>60)
== END 2021-11-03 21:39 | disposition home or self-care (01) ==
LOC: JD.ED 19:50
DX: E10.649 Type 1 diabetes mellitus with hypoglycemia without coma (principal); Z79.899 Other long term (current) drug therapy; Z79.4 Long term (current) use of insulin; Z90.49 Acquired absence of other specified parts of digestive tract
CPT/HCPCS: 36415; 80053; 82947; 85025; 99283; 99284

== ENCOUNTER 2021-11-04 16:43 | Emergency (ER) | payer BC ==
[2021-11-04] MEDS ORDERED: Sodium Chloride 0.9% 1,000 ML IV SCH (17:15)
[2021-11-04] MEDS ORDERED: Ondansetron 4 MG/2 ML SDV IVPUSH ONE (17:15)
[2021-11-04 17:39] LABS: ESTIMATED GFR > 60 mL/min (>60)
== END 2021-11-04 19:10 | disposition home or self-care (01) ==
LOC: JD.ED 16:43
DX: E10.65 Type 1 diabetes mellitus with hyperglycemia (principal); A08.4 Viral intestinal infection, unspecified; Z20.822 Contact with and (suspected) exposure to COVID-19; Z79.899 Other long term (current) drug therapy; Z79.4 Long term (current) use of insulin
CPT/HCPCS: 36415; 80053; 82009; 82800; 82947; 83930; 85025; 87635; 96361; 96374; 99284; J2405; J7030; U0002

== ENCOUNTER 2023-09-29 21:19 | Emergency (ER) | payer BC ==
[2023-09-29 22:10] LABS: BASOPHILS PERCENT AUTO 0.6 % (0.0-1.0); EOSINOPHILS ABSOLUTE AUTO 0.2 K/mm3 (0.0-0.4); EOSINOPHILS PERCENT AUTO 2.8 % (0.0-6.0); HEMATOCRIT 46.2 % (42.0-52.0); HEMOGLOBIN 16.9 gm/dl (14.0-18.0); IMMATURE GRAN ABSOLUTE AUTO 0.02 K/mm3 (0.00-0.05); IMMATURE GRAN PERCENT AUTO 0.3 % (0.0-0.4); LYMPHOCYTES ABSOLUTE AUTO 2.1 K/mm3 (1.0-4.8); LYMPHOCYTES PERCENT AUTO 30.1 % (24.0-44.0); MEAN CORPUSCULAR HEMOGLOBIN 30.6 pg (28.0-32.0); MEAN CORPUSCULAR HGB CONC 36.6 g/dl (32.0-36.0); MEAN CORPUSCULAR VOLUME 83.5 fl (83.0-99.0); MEAN PLATELET VOLUME 9.4 fl (9.4-12.4); MONOCYTES ABSOLUTE AUTO 0.6 K/mm3 (0.0-0.8); MONOCYTES PERCENT AUTO 9.3 % (0.0-8.0); NEUTROPHILS ABSOLUTE AUTO 3.9 K/mm3 (1.8-7.7); NEUTROPHILS PERCENT AUTO 56.9 % (41.0-71.0); PLATELET COUNT,PLT 260 K/mm3 (150-400); RED BLOOD CELL COUNT 5.53 M/mm3 (4.52-5.90); WHITE BLOOD CELL COUNT,WBC 6.81 K/mm3 (3.9-11.3)
[2023-09-29] MEDS: Ibuprofen 400 MG Tab PO ONE (22:24)
[2023-09-29 22:38] LABS: A/G RATIO 1.5 (1-2); BILIRUBIN TOTAL 1.2 mg/dL (0.2-1.0); CALCIUM 9.1 mg/dL (8.5-10.1); EST CRCL DRUG DOSING (CG) 100.99 mL/min; PROTEIN TOTAL,TP 6.6 g/dl (6.4-8.2)
== END 2023-09-29 23:31 | disposition home or self-care (01) ==
LOC: JD.ED 21:19
DX: R07.89 Other chest pain (principal); E10.9 Type 1 diabetes mellitus without complications; Z79.899 Other long term (current) drug therapy
CPT/HCPCS: 36415; 71045; 80053; 84484; 85025; 93005; 99285; A9270; 93010; 99284